=== PATIENT | male | born 1965 | race Caucasian/White ===

== ENCOUNTER 2019-02-23 13:42 | Emergency (ER) | payer MEDICAID, OTHER ==
[~2019-02-23] VITALS: Ht 182.9 cm; Wt 94.3 kg
--- NOTE | 2019-02-23 13:42 | NUR ---
PT BIBA BLS TO ER BED 02
[2019-02-23 13:46] VITALS: BP 139/93
[2019-02-23] MEDS ORDERED: ONDANSETRON 4 MG ODT PO ONE (14:10)
[2019-02-23] MEDS ORDERED: MORPHINE SULFATE 4 MG/ML SYR IM ONE (14:10)
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
--- NOTE | 2019-02-23 14:32 | NUR ---
PT TO X-RAY VIA WHEELCHAIR BY TECH.
--- NOTE | 2019-02-23 16:09 | NUR ---
Patient discharged with v/s stable. Written and verbal after care instructions given and explained. Patient alert, oriented and verbalized understanding of instructions. Ambulatory with steady gait. All questions addressed prior to discharge. ID band removed. Patient advised to follow up with PMD. Rx of NAPROXEN/TRAMADOL given. Patient educated on indication of medication including possible reaction and side effects. Opportunity to ask questions provided and answered.
[2019-02-23 16:10] VITALS: BP 137/91
== END 2019-02-23 16:09 | disposition home or self-care (01) ==
LOC: MED 13:42
DX: S16.1XXA Strain of muscle, fascia and tendon at neck level, initial encounter (principal); S43.402A Unspecified sprain of left shoulder joint, initial encounter; S80.01XA Contusion of right knee, initial encounter; V19.9XXA Pedal cyclist (driver) (passenger) injured in unspecified traffic accident, initial encounter; Y93.55 Activity, bike riding; Y92.89 Other specified places as the place of occurrence of the external cause; Y99.8 Other external cause status
CPT/HCPCS: 70450; 71046; 72125; 73030; 73562; 96372; 99284; J2270; Q0162